=== PATIENT | male | born 1975 | race Caucasian/White ===

== ENCOUNTER → 2019-03-08 | Outpatient (CLI) | payer BC ==
--- NOTE | 2019-03-08 16:09 | DIREP ---
PROCEDURE:XRAY RIBS 3VWS-BILAT, 7 images COMPARISON:None. INDICATIONS:R07.82 INTERCOSTAL PAIN FINDINGS: RIBS:Possible right posterior 8th rib fracture. OTHER:No additional findings. CONCLUSION:Possible nondisplaced right posterior 8th rib fracture. Left-sided ribs are normal. No pneumothorax. Dictated by: Sourav Doherty M.D. on 03/08/2019 at 04:06 PM
--- NOTE | 2019-03-08 16:16 | DIREP ---
PROCEDURE:XRAY SCAPULA-LT, 3 images COMPARISON:None. INDICATIONS:M25.512 PAIN IN LEFT SHOULDER FINDINGS: BONES:Remote distal left clavicle fracture. JOINTS:Normal. SOFT TISSUES:Normal. OTHER:Remote healed left lateral cord and anterior 4th rib fractures. CONCLUSION:No acute fracture or subluxation. Remote posttraumatic changes. Dictated by: Sourav Doherty M.D. on 03/08/2019 at 04:14 PM
--- NOTE | 2019-03-08 16:45 | DIREP ---
PROCEDURE:XRAY CLAVICLE-LT 2 VIEWS COMPARISON:None. INDICATIONS:M25.512 PAIN IN LEFT SHOULDER FINDINGS: BONES:Healed distal left clavicle fracture. JOINTS:Normal. SOFT TISSUES:Normal. OTHER:No additional findings. CONCLUSION:No acute fracture or subluxation. Remote healed distal left clavicle fracture. Dictated by: Sourav Doherty M.D. on 03/08/2019 at 04:43 PM
--- NOTE | 2019-03-08 17:33 | DIREP ---
PROCEDURE:XRAY SHOULDER MIN 2 VWS-RT COMPARISON:[facility], CR, XRAY CLAVICLE-LT, 03/08/2019, 03:01 PM. INDICATIONS:M25.511 PAIN IN RIGHT SHOULDER FINDINGS: BONES:Chronic appearing left distal clavicular fracture. JOINTS:Normal left glenohumeral and acromioclavicular joints. Subacromial space maintained. No evidence for dislocation. SOFT TISSUES:Normal. OTHER:Normal. CONCLUSION:No acute or significant chronic bony abnormality. Dictated by: Cris Arreguin MD on 03/08/2019 at 05:30 PM
== END | disposition home or self-care (01) ==
LOC: RAD 14:48
PROVIDERS: ATTEND Internal Medicine
DX: R07.82 Intercostal pain (principal); M25.512 Pain in left shoulder; M25.511 Pain in right shoulder
CPT/HCPCS: 71110; 73000-LT; 73010-LT; 73030-RT